=== PATIENT | male | born 1970 | race Caucasian/White ===

== ENCOUNTER 2017-05-17 04:05 | Observation (INO) | payer OTHER ==
[~2017-05-17] VITALS: Ht 177.8 cm; Wt 109.1 kg
[~2017-05-17 04:05] MED LIST: ALFUZOSIN HCL10 MG PO; AMLODIPINE BESYL5 MG PO; ASPIR-LOW81 MG PO; ASPIRIN; ASPIRIN325 MG PO; AZITHROMYCIN500 M1 PO; BENADRYL25 MG PO; CARAFATE1 GM PO; CARISOPRODOL350 MG PO; CENTRUM CARD1 TABLET PO; CENTRUM SPECIA1 EACH PO; COLACE100 MG PO; CRESTOR40 MG PO; DEXILANT60 MG PO; DULERA 100 MCG/13 GM IH; Ecotrin PO; FENOFIBRATE160 MG PO; FLONASE16 G1 BOTH NARES; GEMFIBROZIL600 MG PO; HYDROCODON-ACE1 EAC7 PO; HYDROCODONE-AP1 EAC8 PO; IMDUR30 MG PO; ISOSORBIDE MONO30 MG PO; KLONOPIN0.5 M1 PO; LEVOFLOXACIN500 MG PO; LEVSIN-SL0.125 MG SL; LIPITOR80 MG PO; LOPRESSOR50 MG PO; METAMUCIL FIBE1 EACH PO; METOPROLOL TART50 MG PO; NICOTINE PATCH1 EAC2 TD; NITROGLYCERIN0.4 MG PO; NITROSTAT0.4 MG SL; PANTOPRAZOLE SO40 MG PO; PERCOCET 5/31 TABLET PO; PERCOCET 7.51 TABLET PO; PLAVIX75 MG PO; PREDNISONE10 MG PO; PREVACID30 MG PO; PROAIR HFA8.5 GM IH; PROVENTIL HFA6.7 GM IH; SOMA350 MG PO; SUCRALFATE1 GM PO; TRAMADOL HCL50 MG PO; URIBEL CAPSULE1 EACH PO; VICODIN,LORT1 TABLET PO; ZANTAC150 MG PO
[2017-05-17 04:23] LABS: HEMATOCRIT 45.4 % (38.0-50.0); MCH 32.5 PG (29.0-34.0); MCHC 36.6 G/DL (30.0-36.0); MEAN PLAT.VOLUME 8.9 uM^3 (9.0-12.4); PLATELET COUNT 214 K/uL (156-360); RBC DIS.WIDTH-CV 12.3 % (11.8-14.6); WHITE BLOOD COUNT 9.2 K/uL (4.1-10.2)
[2017-05-17 04:30] LABS: CHLORIDE 107 mEq/L (99-109); POTASSIUM 3.3 mEq/L (3.7-5.4); SODIUM 146 mEq/L (136-147)
[2017-05-17 04:31] LABS: GLUCOSE 102 mg/dL (70-99)
[2017-05-17 04:33] LABS: ANION GAP 19 MEQ/L (2-14)
[2017-05-17 04:35] LABS: GFR ESTIMATE (CALCULATED) > 59 mL/min/
[2017-05-17 04:36] LABS: UREA NITROGEN (BUN) 13 mg/dL (9-23)
[2017-05-17 04:41] LABS: TROP-I INTERPRETATION NEGATIVE; TROPONIN-I < 0.01 ng/mL (0.0-0.30)
[2017-05-17 04:55] LABS: ADD MIUA? YES; BILIRUBIN NEGATIVE; BLOOD SMALL; COLOR COLORLESS ((YELLOW)); GLUCOSE (STRIP) NEGATIVE; KETONES NEGATIVE; LEUKOCYTES NEGATIVE; NITRITE NEGATIVE; PROTEIN (STRIP) NEGATIVE; SPECIFIC GRAVITY 1.003 (1.000-1.030); UROBILINOGEN 0.2 MG/DL (0.2-1.0)
[2017-05-17 05:08] LABS: SERUM ETHYL ALCOHOL 224 mg/dL
[2017-05-17 05:20] LABS: AMPHETAMINE NEGATIVE (500 ng/mL); BACTERIA NONE SEEN /HPF; BARBITURATES NEGATIVE (200 ng/mL); BENZODIAZEPINES NEGATIVE (150 ng/mL); COCAINE NEGATIVE (150 ng/mL); EPITHELIAL CELLS NONE SEEN /HPF; INTERNAL CONTROLS VALID? YES; METHADONE NEGATIVE (200 ng/mL); METHAMPHETAMINE NEGATIVE (500 ng/mL); MUCUS TRACE /LPF; OPIATES (MORPHINE) NEGATIVE (100 ng/mL); OXYCODONE NEGATIVE (100 ng/mL); PHENCYCLIDINE NEGATIVE (25 ng/mL); PROPOXYPHENE NEGATIVE (300 ng/mL); RED BLOOD CELLS 0-5 /HPF (0-5); THC CANNABINOIDS NEGATIVE (50 ng/mL); TRICYCLIC ANTIDEPRESSANTS NEGATIVE (300 ng/mL); UCUL ADDED? NO; WHITE BLOOD CELLS 0-5 /HPF (0-5)
[2017-05-17 09:47] VITALS: BP 116/69
[2017-05-17 11:38] VITALS: BP 101/62
[2017-05-17 11:44] LABS: TROP-I INTERPRETATION NEGATIVE; TROPONIN-I < 0.01 ng/mL (0.0-0.30)
[2017-05-17 15:57] VITALS: BP 135/76; BP 141/72
[2017-05-17] MEDS ORDERED: ATARAX,VISTARIL25 MG PO (16:25)
[2017-05-17] MEDS ORDERED: AMLODIPINE BESYL5 MG PO (16:25)
[2017-05-17] MEDS ORDERED: CLONAZEPAM0.5 MG PO (16:26)
[2017-05-17] MEDS ORDERED: ROSUVASTATIN CA40 MG PO (16:26)
[2017-05-17] MEDS ORDERED: JANUMET XR 50-1 EAC1 PO (16:27)
[2017-05-17] MEDS ORDERED: IMDUR120 MG PO (16:27)
[2017-05-17] MEDS ORDERED: ISOSORBIDE MONO30 MG PO (16:30)
[2017-05-17 17:19] LABS: TROP-I INTERPRETATION NEGATIVE; TROPONIN-I < 0.01 ng/mL (0.0-0.30)
[2017-05-17 18:28] VITALS: BP 152/79
== END 2017-05-17 21:12 | disposition home or self-care (01) ==
LOC: EME → EDBD 04:05 → EDOF 07:25 → 5WEST 08:58
PROVIDERS: Emergency Medicine; Nurse Practitioner Adult Health
DX: R07.9 Chest pain, unspecified (principal); R56.9 Unspecified convulsions; F10.10 Alcohol abuse, uncomplicated; E87.6 Hypokalemia; I25.10 Atherosclerotic heart disease of native coronary artery without angina pectoris; Z95.5 Presence of coronary angioplasty implant and graft; I25.2 Old myocardial infarction; I10 Essential (primary) hypertension; K21.9 Gastro-esophageal reflux disease without esophagitis; E78.5 Hyperlipidemia, unspecified; N40.0 Benign prostatic hyperplasia without lower urinary tract symptoms; Z79.82 Long term (current) use of aspirin; Z79.84 Long term (current) use of oral hypoglycemic drugs; F17.200 Nicotine dependence, unspecified, uncomplicated; J44.9 Chronic obstructive pulmonary disease, unspecified; Z88.8 Allergy status to other drugs, medicaments and biological substances; Z91.09 Other allergy status, other than to drugs and biological substances
CPT/HCPCS: 70450; 70496; 70498; 71010; 80048; 81003; 83735; 84484; 85027; 93005; 94640; 94640 76; 94760; 99202; 99281; 99285; G0378; G0480; J1650; J2060; J3411; J7120; S0028

== ENCOUNTER 2017-07-15 10:26 | Emergency (ER) | payer OTHER ==
[~2017-07-15] VITALS: Ht 177.8 cm; Wt 98.1 kg
[~2017-07-15 10:26] MED LIST changes: +ATARAX,VISTARIL25 MG PO; +CLONAZEPAM0.5 MG PO; +IMDUR120 MG PO; +JANUMET XR 50-1 EAC1 PO; +ROSUVASTATIN CA40 MG PO
[2017-07-15] MEDS ORDERED: PEPCID40 MG PO (11:30)
[2017-07-15] MEDS ORDERED: ZYRTEC10 M2 PO (11:30)
[2017-07-15 11:47] VITALS: BP 118/76
== END 2017-07-15 11:48 | disposition home or self-care (01) ==
LOC: EME 10:26
DX: L27.0 Generalized skin eruption due to drugs and medicaments taken internally (principal); R06.02 Shortness of breath; R00.2 Palpitations; T38.0X5A Adverse effect of glucocorticoids and synthetic analogues, initial encounter; I25.2 Old myocardial infarction; M19.90 Unspecified osteoarthritis, unspecified site; K21.9 Gastro-esophageal reflux disease without esophagitis; J44.9 Chronic obstructive pulmonary disease, unspecified; I10 Essential (primary) hypertension; Z98.61 Coronary angioplasty status; Z79.82 Long term (current) use of aspirin; F17.200 Nicotine dependence, unspecified, uncomplicated
CPT/HCPCS: 93005; 99281; 99283